=== PATIENT | male | born 1955 | race African-American/Black ===

== ENCOUNTER 2021-11-04 16:37 | Observation (INO) ==
[2021-11-04] MEDS ORDERED: ASPIRIN 325 MG TABLET PO STA (17:07)
[2021-11-04 17:29] LABS: PT Patient Result 10.7 SECS (10.5-12.0)
[2021-11-04 17:31] LABS: Basophils # 0.1 10*3/uL (0.0-0.2); Basophils % 0.5 % (0.0-0.8); Eosinophils # 0.5 10*3/uL (0.0-0.87); Eosinophils % 4.9 % (0.00-10.9); Hematocrit 40.3 VOL% (42.0-52.0); Hemoglobin 13.4 GM/DL (14.0-18.0); Immature Granulocytes % 0.5 %; Immature Granulocytes Absolute 0.05 #; Lymphocytes # 1.7 10*3/uL (1.4-4.0); Lymphocytes % 18.1 % (21.2-54.2); Mean Corpuscular HGB Conc 33.3 GM/DL (32-36); Mean Corpuscular Volume 90.2 FL (87-102); Mean Platelet Volume 9.9 FL (9.6-12.0); Monocytes % 5.8 % (1.7-12.7); Neutrophils % 70.2 % (38.7-73.9); Platelet Count 239 T/CUMM (130-400); Red Blood Count 4.47 MC/CUMM (3.8-5.5); Red Cell Distribution Width 13.2 % (9.3-17.3); White Blood Count 9.5 T/CUMM (4-12)
[2021-11-04 17:43] LABS: Alanine Aminotransferase 22 U/L (16-61); Albumin 3.8 G/DL (3.4-5.0); Alkaline Phosphatase 78 U/L (45-117); Aspartate Amino Transferase 31 U/L (0-37); Bilirubin,Total < 0.39 MG/DL (0.20-1.00); Blood Urea Nitrogen 24 MG/DL (7-18); Calcium 9.3 MG/DL (8.5-10.1); Carbon Dioxide 25 MMOL/L (21-32); Estimated Glom Filtration Rate 58 ML/MIN; Glucose 135 MG/DL (74-106); Osmolality,Calculated 282.5 MOS/KG (273-304); Potassium 3.9 MMOL/L (3.5-5.1); Sodium 139 MMOL/L (136-145); Total Protein 7.6 G/DL (6.4-8.2)
[2021-11-04] MEDS ORDERED: ZALEPLON 5 MG CAPSULE PO PRN (18:12)
[2021-11-04] MEDS ORDERED: ACETAMINOPHEN 325 MG TABLET PO PRN (18:12)
[2021-11-04] MEDS ORDERED: DOCUSATE SODIUM 100 MG CAPSULE PO PRN (18:12)
[2021-11-04] MEDS ORDERED: GLUCAGON 1 MG VIAL IM PRN (18:12)
[2021-11-04] MEDS ORDERED: ONDANSETRON 4 MG/2 ML VIAL IV PRN (18:12)
[2021-11-04] MEDS ORDERED: hydrALAZINE 20 MG/1 ML VIAL IV PRN (18:12)
[2021-11-04] MEDS ORDERED: FLUTICASONE 50 MCG NASAL SPRAY 16 GM BOTTLE BOTH NARES PRN (18:20)
[2021-11-04] MEDS ORDERED: NITROGLYCERIN SL 0.4 MG TABLET SL PRN (18:21)
[2021-11-04] MEDS ORDERED: DEXTROSE 10% 250 ML BAG IV PRN (18:25)
[2021-11-04] MEDS ORDERED: LABETALOL 20 MG/4 ML SYRINGE IV STA (18:58)
[2021-11-04] MEDS: ENOXAPARIN 40 MG/0.4 ML SYRINGE SUBCUT SCH (21:29)
[2021-11-04] MEDS: SUCRALFATE 1 GM TABLET PO SCH (21:30)
[2021-11-04] MEDS: TICAGRELOR 90 MG TABLET PO SCH (21:30)
[2021-11-04] MEDS: carvediloL 25 MG TABLET PO SCH (21:30)
[2021-11-04] MEDS: ROSUVASTATIN 10 MG TABLET PO SCH (21:30)
[2021-11-04] MEDS: INSULIN REGULAR 100 UNIT/ML SUBCUT SCH (22:25)
[2021-11-05 06:20] LABS: Basophils # 0.1 10*3/uL (0.0-0.2); Basophils % 0.5 % (0.0-0.8); Eosinophils # 0.4 10*3/uL (0.0-0.87); Eosinophils % 4.5 % (0.00-10.9); Hematocrit 37.3 VOL% (42.0-52.0); Hemoglobin 12.2 GM/DL (14.0-18.0); Immature Granulocytes % 0.3 %; Immature Granulocytes Absolute 0.03 #; Lymphocytes % 21.2 % (21.2-54.2); Mean Corpuscular HGB Conc 32.7 GM/DL (32-36); Monocytes % 7.6 % (1.7-12.7); Neutrophils % 65.9 % (38.7-73.9); Platelet Count 227 T/CUMM (130-400); Red Cell Distribution Width 13.3 % (9.3-17.3); White Blood Count 9.5 T/CUMM (4-12)
[2021-11-05 07:08] LABS: Osmolality,Calculated 285.3 MOS/KG (273-304); Potassium 3.5 MMOL/L (3.5-5.1); Risk Ratio 3.5; Thyroid Stimulating Hormone 0.704 uIU/ml (0.358-3.74); VLDL Cholesterol 50.4 MG/DL
[2021-11-05] MEDS: MORPHINE 2 MG/1 ML SYRINGE IV PRN ×2 (07:15→21:19)
[2021-11-05] MEDS ORDERED: DIAZEPAM 5 MG TABLET PO ONE (08:12)
[2021-11-05] MEDS ORDERED: diphenhydrAMINE CAP 50 MG CAPSULE PO ONE (08:12)
[2021-11-05] MEDS ORDERED: HEPARIN/NACL 0.9% 2 UNITS/ML 2,000 UNIT/1,000 ML BAG IV ONE (08:25)
[2021-11-05] MEDS: INSULIN REGULAR 100 UNIT/ML SUBCUT SCH ×4 (08:33→21:20)
[2021-11-05] MEDS ORDERED: diphenhydrAMINE CAP 25 MG CAPSULE ONE (08:37)
[2021-11-05] MEDS ORDERED: DIAZEPAM 5 MG TABLET ONE (08:37)
[2021-11-05] MEDS ORDERED: VERAPAMIL 5 MG/2 ML VIAL ONE (08:38)
[2021-11-05] MEDS: SODIUM CHLORIDE 0.9% 1,000 ML IV SCH ×2 (08:40→19:07)
[2021-11-05] MEDS ORDERED: MIDAZOLAM 2 MG/2 ML VIAL ONE (08:43)
[2021-11-05] MEDS ORDERED: fentaNYL 100 MCG/2 ML VIAL ONE (08:43)
[2021-11-05] MEDS ORDERED: ENOXAPARIN 60 MG/0.6 ML SYRINGE ONE (08:50)
[2021-11-05] MEDS: TICAGRELOR 90 MG TABLET PO SCH ×2 (09:16→21:19)
[2021-11-05] MEDS ORDERED: TICAGRELOR 90 MG TABLET ONE (09:16)
[2021-11-05] MEDS: allopurinoL 300 MG TABLET PO SCH (10:16)
[2021-11-05] MEDS: PARoxetine 20 MG TABLET PO SCH (10:16)
[2021-11-05] MEDS: OLMESARTAN 20 MG TABLET PO SCH (10:16)
[2021-11-05] MEDS: hydroCHLOROthiazide 25 MG TABLET PO SCH (10:16)
[2021-11-05] MEDS: amLODIPine 5 MG TABLET PO SCH (10:16)
[2021-11-05] MEDS: ASPIRIN EC 81 MG TABLET PO SCH (10:17)
[2021-11-05] MEDS: carvediloL 25 MG TABLET PO SCH ×2 (10:17→21:19)
[2021-11-05] MEDS: PANTOPRAZOLE 40 MG TABLET PO SCH (10:17)
[2021-11-05] MEDS: SUCRALFATE 1 GM TABLET PO SCH (21:19)
[2021-11-05] MEDS: ROSUVASTATIN 10 MG TABLET PO SCH (21:19)
[2021-11-05] MEDS: ENOXAPARIN 40 MG/0.4 ML SYRINGE SUBCUT SCH (21:19)
[2021-11-06] MEDS: SODIUM CHLORIDE 0.9% 1,000 ML IV SCH ×3 (01:07→13:08)
[2021-11-06 04:31] LABS: Basophils # 0.1 10*3/uL (0.0-0.2); Basophils % 0.5 % (0.0-0.8); Eosinophils # 0.4 10*3/uL (0.0-0.87); Eosinophils % 4.3 % (0.00-10.9); Hematocrit 35.1 VOL% (42.0-52.0); Hemoglobin 11.2 GM/DL (14.0-18.0); Immature Granulocytes % 0.3 %; Immature Granulocytes Absolute 0.03 #; Lymphocytes % 21.1 % (21.2-54.2); Mean Corpuscular HGB Conc 31.9 GM/DL (32-36); Mean Corpuscular Volume 93.1 FL (87-102); Mean Platelet Volume 9.9 FL (9.6-12.0); Monocytes % 7.4 % (1.7-12.7); Neutrophils % 66.4 % (38.7-73.9); Platelet Count 182 T/CUMM (130-400); Red Blood Count 3.77 MC/CUMM (3.8-5.5); Red Cell Distribution Width 13.2 % (9.3-17.3); White Blood Count 9.3 T/CUMM (4-12)
[2021-11-06 04:48] LABS: Calcium 8.6 MG/DL (8.5-10.1); Osmolality,Calculated 286.1 MOS/KG (273-304); Potassium 3.9 MMOL/L (3.5-5.1)
[2021-11-06] MEDS: INSULIN REGULAR 100 UNIT/ML SUBCUT SCH ×2 (07:31→11:23)
[2021-11-06] MEDS: hydroCHLOROthiazide 25 MG TABLET PO SCH (09:36)
[2021-11-06] MEDS: allopurinoL 300 MG TABLET PO SCH (09:36)
[2021-11-06] MEDS: carvediloL 25 MG TABLET PO SCH (09:36)
[2021-11-06] MEDS: OLMESARTAN 20 MG TABLET PO SCH (09:36)
[2021-11-06] MEDS: ASPIRIN EC 81 MG TABLET PO SCH (09:36)
[2021-11-06] MEDS: PARoxetine 20 MG TABLET PO SCH (09:36)
[2021-11-06] MEDS: PANTOPRAZOLE 40 MG TABLET PO SCH (09:36)
[2021-11-06] MEDS: TICAGRELOR 90 MG TABLET PO SCH (09:36)
[2021-11-06] MEDS: amLODIPine 5 MG TABLET PO SCH (09:36)
[2021-11-06 11:54] VITALS: BP 115/59
== END 2021-11-06 14:49 | disposition home or self-care (01) ==
LOC: N.EDINP 16:37 → N.ED 16:37 → SUATTDRO 18:33 → N.TELEN 20:02
PROVIDERS: ADMIT Internal Medicine; ATTEND Internal Medicine
PROC: CLCCHCL (ICD-10-PCS; 2021-11-05 09:15)

== ENCOUNTER 2021-12-04 13:45 | Observation (INO) ==
[2021-12-04] MEDS ORDERED: ONDANSETRON 4 MG/2 ML VIAL IV PRN (13:49)
[2021-12-04] MEDS ORDERED: CALCIUM CARBONATE CHEW 500 MG TABLET PO PRN (13:49)
[2021-12-04] MEDS ORDERED: ACETAMINOPHEN 325 MG TABLET PO PRN (13:49)
[2021-12-04] MEDS ORDERED: BISACODYL 5 MG TABLET PO PRN (13:49)
[2021-12-04] MEDS ORDERED: SIMETHICONE CHEW 125 MG TABLET PO PRN (13:49)
[2021-12-04] MEDS ORDERED: ALUMINUM/MAGNES/SIMETH MAX STR 30 ML UDCUP PO PRN (13:49)
[2021-12-04] MEDS ORDERED: ZALEPLON 5 MG CAPSULE PO PRN (13:49)
[2021-12-04] MEDS ORDERED: LACTULOSE 20 GM/30 ML UDCUP PO PRN (13:49)
[2021-12-04] MEDS ORDERED: hydrALAZINE 20 MG/1 ML VIAL IV PRN (13:49)
[2021-12-04] MEDS ORDERED: MORPHINE 2 MG/1 ML SYRINGE IV PRN (13:49)
[2021-12-04] MEDS ORDERED: DOCUSATE SODIUM 100 MG CAPSULE PO PRN (13:49)
[2021-12-04] MEDS ORDERED: FLUTICASONE 50 MCG NASAL SPRAY 16 GM BOTTLE BOTH NARES PRN (13:58)
[2021-12-04] MEDS ORDERED: ENOXAPARIN 40 MG/0.4 ML SYRINGE SUBCUT SCH ×2 (14:00→21:00)
[2021-12-04] MEDS ORDERED: GLUCAGON 1 MG VIAL IM PRN (14:12)
[2021-12-04] MEDS ORDERED: DEXTROSE 10% 250 ML BAG IV PRN (14:32)
[2021-12-04] MEDS: INSULIN LISPRO 100 UNIT/ML SUBCUT SCH ×2 (17:34→21:48)
[2021-12-04] MEDS: SODIUM CHLORIDE 0.9% 1,000 ML IV SCH (17:58)
[2021-12-04] MEDS: NITROGLYCERIN 2% OINT 1 INCH/GM PACK TOP SCH (18:12)
[2021-12-04] MEDS: carvediloL 25 MG TABLET PO SCH (21:48)
[2021-12-05] MEDS: NITROGLYCERIN 2% OINT 1 INCH/GM PACK TOP SCH ×2 (00:49→05:50)
[2021-12-05] MEDS: SODIUM CHLORIDE 0.9% 1,000 ML IV SCH ×2 (00:50→11:25)
[2021-12-05 05:23] LABS: Basophils % 0.4 % (0.0-0.8); Eosinophils # 0.5 10*3/uL (0.0-0.87); Eosinophils % 6.3 % (0.00-10.9); Hematocrit 35.4 VOL% (42.0-52.0); Hemoglobin 11.4 GM/DL (14.0-18.0); Immature Granulocytes % 0.1 %; Immature Granulocytes Absolute 0.01 #; Lymphocytes # 1.9 10*3/uL (1.4-4.0); Lymphocytes % 26.2 % (21.2-54.2); Mean Corpuscular HGB Conc 32.2 GM/DL (32-36); Mean Corpuscular Volume 91.9 FL (87-102); Mean Platelet Volume 10.3 FL (9.6-12.0); Monocytes # 0.7 10*3/uL (0.11-0.8); Monocytes % 9.3 % (1.7-12.7); Neutrophils % 57.7 % (38.7-73.9); Platelet Count 209 T/CUMM (130-400); Red Blood Count 3.85 MC/CUMM (3.8-5.5); Red Cell Distribution Width 12.8 % (9.3-17.3); White Blood Count 7.3 T/CUMM (4-12)
[2021-12-05 05:41] LABS: Osmolality,Calculated 283.4 MOS/KG (273-304); Potassium 4.1 MMOL/L (3.5-5.1); Risk Ratio 5.54
[2021-12-05] MEDS ORDERED: DIAZEPAM 5 MG TABLET PO ONE (08:00)
[2021-12-05] MEDS ORDERED: diphenhydrAMINE CAP 50 MG CAPSULE PO ONE (08:00)
[2021-12-05] MEDS: carvediloL 25 MG TABLET PO SCH (08:14)
[2021-12-05] MEDS ORDERED: HEPARIN/NACL 0.9% 2 UNITS/ML 2,000 UNIT/1,000 ML BAG IV ONE (08:24)
[2021-12-05] MEDS ORDERED: MIDAZOLAM 2 MG/2 ML VIAL ONE (08:49)
[2021-12-05] MEDS ORDERED: HYDROmorphone 1 MG/1 ML SYRINGE ONE (08:49)
[2021-12-05] MEDS ORDERED: PARoxetine 20 MG TABLET PO SCH (09:00)
[2021-12-05] MEDS ORDERED: CLOPIDOGREL 75 MG TABLET PO SCH (09:00)
[2021-12-05] MEDS ORDERED: OLMESARTAN 40 MG PO SCH (09:00)
[2021-12-05] MEDS ORDERED: ASPIRIN EC 81 MG TABLET PO SCH (09:00)
[2021-12-05] MEDS ORDERED: allopurinoL 300 MG TABLET PO SCH (09:00)
[2021-12-05] MEDS ORDERED: amLODIPine 5 MG TABLET PO SCH (09:00)
[2021-12-05] MEDS ORDERED: ROSUVASTATIN 10 MG TABLET PO SCH (09:00)
[2021-12-05] MEDS ORDERED: hydroCHLOROthiazide 25 MG TABLET PO SCH (09:00)
[2021-12-05] MEDS ORDERED: PANTOPRAZOLE 40 MG TABLET PO SCH (09:00)
[2021-12-05] MEDS: INSULIN LISPRO 100 UNIT/ML SUBCUT SCH ×2 (09:04→11:28)
[2021-12-05] MEDS ORDERED: DEXTROSE 10% 25 GM/250 ML BAG IV PRN (09:42)
[2021-12-05 15:11] VITALS: BP 129/76
== END 2021-12-05 16:44 | disposition home or self-care (01) ==
LOC: INTOOBSV 15:29 → N.TELEN 15:29
PROVIDERS: ADMIT Internal Medicine Cardiovascular Disease; ATTEND Internal Medicine Cardiovascular Disease
PROC: CLCCHCL (ICD-10-PCS; 2021-12-05 09:15)